=== PATIENT | female | born 1995 | race Caucasian/White ===

== ENCOUNTER 2025-03-16 11:41 | Outpatient (AMB) | payer BC, MEDICAID, SELFPAY ==
[2025-03-16 11:49] VITALS: BP 105/68; PULSE 85; RESP 16; TEMP 36.5; O2SAT 98; BMI 22.8
--- NOTE | 2025-03-16 11:49 | OBCLNT_ITS ---
Vital Signs 03/16/25 11:49 Height 1.63 m Height Method Stated Weight 60.838 kg Weight Measurement Method Standing Scale BMI 22.8 BP 105/68 Blood Pressure Source Automatic Cuff Blood Pressure Location Left Upper Arm Position Sitting Respiration 16 Pulse 85 Pulse Source Monitor Temp 97.7 F Temp Source Oral Pulse Oximetry (%) 98 Oxygen Delivery Method Room Air Allergies/Home Meds Allergies & Medications Allergies No Known Allergies Allergy (Verified 03/16/25 11:50) Medication Reconciliation No Known Home Medications 02/16/25 [History Confirmed 03/16/25] Immunizations Immunizations Flu Vaccine in the Last 12 Months: Yes Date of most recent flu vaccination: 03/16/25 Flu Vaccine Exclusion Criteria: Already Received Care OB Visit Log OB Flowsheet Initial Weight: Not Recorded Date -?-?-?-?-?-?-?-?-?-?-?-?- EGA Weight BP Alb Glu CTX Pres Fundal ht FHR Mov Dilation Station Effacement Hx Notes Visit Note 02/16/25 -?-?-?-?-?-?-?-?-?-?-?-?- 25w 6d 60.101 kg 104/65 absent unknown 25 146 active OB transfer from [facility] with records. This is a 29-year-old 4 para 0 SAB 3. She has been followed at [facility] since she was in the first trimester. Reports movement. Denies leaking, bleeding, contrac tions. Fetus is active. She has a follow-up ultrasound in March with [facility] Reviewed labs and dates today. Keep follow-up appointment with [facility] in March. Discussed labor precautions. Return in 4 weeks OB check 03/16/25 -?-?-?-?-?-?-?-?-?-?-?-?- 29w 6d 60.838 kg 105/68 absent unknown 29 145 active Reports good movement. Denies leaking, bleeding, contractions. Patient has a follow-up ultrasound in the middle of March. Keep appointment with Dr. Guerrero's office. Discussed labor precautions. Continue prenatals return in 3 weeks OB check Keep appointment with Dr. Rock del cid's office. Discussed labor precautions. Continue prenatals return in 3 weeks OB check. QUETA Calculator Estimated Delivery Date Method Current WG Current Estimate 05/26/25 LMP (Certain) 29w 6d Other Estimates 05/25/25 Ultrasound #1 30w 0d Notes Visit Date: 02/16/25 Last Updated by: Ghazala Go CNM OB panel: A+,abs-, rpr;;nr, rub imm, hbsag-, hiv-, HC-, gc/ct-, , [place]-,UA-, NIPT/AFP,carrier screen-, 1 hr gtt wnl sono: 01/02: 19w4, 70% Office Procedures OBC Clinic LOC & Office Proc's Nursing/Assessment Patient Status: Established Patient OB Clinic Nursing Assessment: Medication Reconciliation, Update PMH in EMR and Vital Signs OB Clinic Coordination of Care: Complex Care and Chronic Disease 1-5, Consent,records obtained, informed consent, Education Simp Pt/Fam, 1 Ins Aut horization, Lab and Imaging orders, Results/Orders obtained and Staff clarify orders Special Needs: Heart tones Established Patient Charge Established Patient Point Assignment: 150 Established Patient Point Charge: EP Level 4 (120-155) Injection/Vaccine Admin SQ Im Injection: Yes Immunizations flu vac ts (6mos up)-PF 45 mcg(15mcg x3)/0.5 mL IM syringe Performing Provider: Ghazala Go CNM Performing Location: [facility] Administered by: Keya Morales MA on 03/16/25 15:01 Dose Route Admin Location Dispensed Lot Number Expiration Date Pack age [facility] [employer] 0.5 mL IM Left Deltoid 0.5 mL [id number] 10/10/25 32479-419-62 [id number] [employer] VIS Given Date VIS Provided VIS Publication Date 03/16/25 Single Vaccine 24 Eligibility Eligibility Date Funding Source Public Non-VFC diphth,pertus(acell),tetanus 2.5 Lf unit-8 mcg-5 Lf/0.5mL IM syringe Performing Provider: Ghazala Go CNM Performing Location: [facility] Administered by: Keya Morales MA on 03/16/25 15:02 Dose Route Admin Location Dispensed Lot Number Expiration Date Pack age [facility]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 Discussed labor precautions. Kick count twice a day. Tdap and flu today return in 3 weeks OB check Additional Plan Follow Up: 3 Weeks (obc)
== END 2025-03-16 12:02 | disposition home or self-care (01) ==
LOC: HODSOBC 11:41
PROVIDERS: Supervising Provider Advanced Practice Midwife; Visit Provider Advanced Practice Midwife
DX: O09.93 Supervision of high risk pregnancy, unspecified, third trimester (principal); Z3A.29 29 weeks gestation of pregnancy; Z23 Encounter for immunization
CPT/HCPCS: 90471; 90686; 90715; 96372; 99214; G0463; J9060

== ENCOUNTER 2025-03-29 15:25 | Outpatient (AMB) | payer MEDICAID, SELFPAY ==
[2025-03-29 15:31] VITALS: BP 114/71; PULSE 81; RESP 18; TEMP 36.4; O2SAT 99; BMI 23.8
--- NOTE | 2025-03-29 15:31 | OBCLNT_ITS ---
Vital Signs 03/29/25 15:31 Height 1.63 m Height Method Stated Weight 63.276 kg Weight Measurement Method Standing Scale BMI 23.8 BP 114/71 Blood Pressure Source Automatic Cuff Blood Pressure Location Right Upper Arm Position Sitting Respiration 18 Pulse 81 Pulse Source Monitor Temp 97.5 F Temp Source Temporal Artery Scan Pulse Oximetry (%) 99 Oxygen Delivery Method Room Air Allergies/Home Meds Allergies & Medications Allergies No Known Allergies Allergy (Verified 03/29/25 15:32) Medication Reconciliation No Known Home Medications 02/16/25 [History Confirmed 03/29/25] Immunizations Immunizations Flu Vaccine in the Last 12 Months: Yes Flu Vaccine Exclusion Criteria: Already Received Care OB Visit Log OB Flowsheet Initial Weight: Not Recorded Date -?-?-?-?-?-?-?-?-?-?-?-?- EGA Weight BP Alb Glu CTX Pres Fundal ht FHR Mov Dilation Station Effacement Hx Notes Visit Note 02/16/25 -?-?-?-?-?-?-?-?-?-?-?-?- 25w 6d 60.101 kg 104/65 absent unknown 25 146 [address] transfer from [facility] with records. This is a 29-year-old 4 para 0 SAB 3. She has been followed at [facility] since she was in the first trimester. Reports movement. Denies leaking, bleeding, contractions. Fetus is active. She has a follow-up ultrasound in March with [facility] Reviewed labs an d dates today. Keep follow-up appointment with [facility] in March. Discussed labor precautions. Return in 4 weeks OB check 03/16/25 -?-?-?-?-?-?-?-?-?-?-?-?- 29w 6d 60.838 kg 105/68 absent unknown 29 145 active Reports good movement. Denies leaking, bleeding, contractions. Patient has a follow-up ultrasound in the middle of March. Keep appointment with Dr. Guerrero's office. Discussed labor precautions. Continue prenatals return in 3 weeks OB check Keep appointment with Dr. Rock del cid's office. Discussed labor precautions. Continue prenatals return in 3 weeks OB check. 03/29/25 -?-?-?-?-?-?-?-?-?-?-?-?- 31w 5d 63.276 kg 114/71 absent cephalic 31 140 active Reports good movement. Denies leaking, bleeding, contractions. Increased indigestion I offered Pepcid. The patient is going to try Tums for indigestion. We talked about comfort measures like smaller meals and decrease spicy foods. Peppermint tea. Discussed labor precautions. Kick count twice a day. Return in 2 weeks OB check QUETA Calculator Estimated Delivery Date Method Current WG Current Estimate 05/26/25 LMP (Certain) 31w 5d Other Estimates 05/25/25 Ultrasound #1 31w 6d Notes Visit Date: 02/16/25 Last Updated by: Ghazala Go CNM OB panel: A+,abs-, rpr;;nr, rub imm, hbsag-, hiv-, HC-, gc/ct-, , [place]-,UA-, NIPT/AFP,carrier screen-, 1 hr gtt wnl sono: 01/02: 19w4, 70% Office Procedures OBC Clinic LOC & Office Proc's Nursing/Assessment Patient Status: Established Patient OB Clinic Nursing Assessment: Medication Reconciliation, Update PMH in EMR and Vital Signs OB Clinic Coordination of Care: Complex Care and Chronic Disease 1-5, Education Complex Pt/Fam, Consent,records obtained, informed consent, Lab and Imaging orders, Results/Orders obtained and Staff clarify orders Special Needs: Heart tones Established Patient Charge Established Patient Point Assignment: 140 Established Patient Point Charge: EP Level 4 (120-155) Assessment & Plan Diagnosis / Problem List (1) Encounter for supervision of high risk in third trimester, antepartum: Status: Acute Plan Comfort measures for indigestion. Tums are okay. Pepcid if it worsens. Discussed labor precautions. Kick count twice a day. Return in 2 weeks OB check Additional Plan Follow Up: 2 Weeks (obc)
== END 2025-03-29 16:07 | disposition home or self-care (01) ==
LOC: HODSOBC 15:25
PROVIDERS: Supervising Provider Advanced Practice Midwife; Visit Provider Advanced Practice Midwife
DX: O09.893 Supervision of other high risk pregnancies, third trimester (principal); O99.613 Diseases of the digestive system complicating pregnancy, third trimester; K30 Functional dyspepsia; Z3A.31 31 weeks gestation of pregnancy
CPT/HCPCS: 99214; G0463